=== PATIENT | female | born 1980 | race Caucasian/White ===

== ENCOUNTER 2021-03-28 23:17 | Emergency (ER) | payer MEDICAID ==
[~2021-03-28] VITALS: Ht 149.9 cm; Wt 56.7 kg
[2021-03-29] MEDS ORDERED: AMOXICILLIN/CLAVUL 875 MG TAB PO ONE
[2021-03-29] MEDS ORDERED: HYDROmorphone HCL 2 MG/ML VL IM ONE
[2021-03-29] MEDS ORDERED: ONDANSETRON ODT 4 MG TAB PO ONE
[2021-03-29 00:15] VITALS: BP 135/82
[2021-03-29] MEDS ORDERED: AMOXICILLIN TRIHYDRATE 250 MG CAP PO ONE (00:15)
== END 2021-03-29 00:45 | disposition home or self-care (01) ==
LOC: ER 23:17
DX: K02.9 Dental caries, unspecified (principal)
CPT/HCPCS: 96372; 99283; J1170; Q0162